=== PATIENT | female | born 1950 | race Asian ===

== ENCOUNTER 2017-09-03 12:57 | Emergency (ER) | payer OTHER ==
[~2017-09-03] VITALS: Ht 154.9 cm; Wt 64.9 kg
[2017-09-03 12:57] VITALS: TEMP 37.2; Ht 154.9 cm; Wt 64.9 kg
[2017-09-03 13:21] VITALS: O2SAT 94
--- NOTE | 2017-09-03 13:54 | EMERGENCY ROOM VISIT NOTE ---
History Report prepared by Malkaibkeron: Maribel Collins Under the Supervision of: Dr. Amaury Huff M.D. 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 Positive vomiting. Negative neck pain. She is accompanied by her son in law and daughter who report they were in a parking lot when the patient went around the front of the car but tripped over the barrier and fell face forward. She struck the side of her face on the ground and became syncopal for about 3 seconds. She came around after but had another episode of syncope that lasted for a few seconds. Her son in law reports that her eyes were rolling in the back of her head As per EMS, the patient vomited in the ambulance. The patient arrived from a 24 hour long plane ride from [facility] 6 days ago. Her family states that since landing, she has been nauseous and unable to sleep. She currently takes baby aspirin occasionally. 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 A total of ten systems were reviewed and were otherwise negative. Past Medical & Surgical Medical Problems: (1) No significant past medical history Family History No pertinent family history Social History Smoking Status: Never Smoker Smokeless Tobacco Use: No Drug Use: none Housing Status: lives with family Occupation Status: retired Current/Historical Medications Scheduled Calcium Carbonate-Vitamin D (Calcium), 1 TAB PO UD Glucosamine Sulfate (Glucosamine), 1 DOSE PO UD Scheduled PRN Aspirin (Aspirin Ec), 81 MG PO DAILY PRN for Pain Cetirizine (Zyrtec), 10 MG PO DAILY PRN for Seasonal Allergies Allergies Coded Allergies: No Known Allergies (Unverified , 09/03/17) Physical Exam Vital Signs Date Time Temp Pulse Resp B/P (MAP) Pulse Ox O2 Delivery O2 Flow Rate FiO2 09/03/17 14:53 89 16 151/72 95 Room Air 09/03/17 13:21 94 Room Air 09/03/17 13:10 83 09/03/17 12:57 37.2 88 20 146/78 94 Room Air Physical Exam GENERAL: Awake, alert, well-appearing, NAD. Left sided facial tenderness, swelling, trace bruising, and abrasion. HENT: Normocephalic, atraumatic. No malocclusion. EYES: Normal conjunctiva. Sclera non-icteric. PERRL. No anisocoria. NECK: Supple. No nuchal rigidity. FROM. No C spine TTP. RESPIRATORY: CTAB, no rhonchi, wheezing, crackles CARDIAC: RRR, no MRG ABDOMEN: Soft, NTND, BS+ MSK: No LE edema. Mild chest wall discomfort. No back, abdomen, pelvis, right upper or right lower pain. Mild pain of left forearm Good ROM. Small abrasion to left knee. No bruising, no swelling. NVI distally NEURO: GCS 15, CN 2-12 intact, moves all 4s on command SKIN: No rash or jaundice noted. Medical Decision & Procedures ER Provider Diagnostic Interpretation: Radiology results as stated below per my review and radiologist interpretation: CT SCAN OF THE FACIAL BONES WITHOUT IV CONTRAST CLINICAL HISTORY: Fall with left facial injury. COMPARISON STUDY: CT of the brain performed concurrently on 09/03/2017. TECHNIQUE: High-resolution CT scan of the facial bones is performed. Images are reviewed in the axial, sagittal, and coronal planes. IV contrast was not administered for this examination. A dose lowering technique was utilized adhering to the principles of ALARA. The examination is modestly degraded by motion artifact. FINDINGS: The skeletal structures are osteopenic. There is no evidence of facial bone fracture. The bony orbits are intact and the orbital contents are within normal limits. The zygomatic arches, nasal bones, and pterygoid plates are preserved. The maxilla and mandible are intact. There are no layering blood products within the paranasal sinuses. There is mild mucosal thickening within the maxillary antra, the left sphenoid sinus, ethmoid sinuses, and the left frontal sinus. There is a right mastoid effusion. A left mastoid air cells are clear. The visualized calvarium and upper cervical spine are maintained. Partially imaged brain parenchyma is within normal limits. Mineralization is noted in the basal ganglia. There is a left premalar soft tissue contusion. IMPRESSION: 1. There is no evidence of facial bone fracture. 2. Left premalar soft tissue contusion. Electronically signed by: Bala Vilbert, M.D. 09/03/2017 2:22 PM HEAD WITHOUT CONTRAST (CT) CLINICAL HISTORY: 67 years-old Female presenting with s/p fall, on ASA, L side of face. TECHNIQUE: Multidetector CT imaging of the head was performed without the use of intravenous contrast. IV contrast: None. A dose lowering technique was used consistent with the principles of ALARA (as low as reasonably achievable). COMPARISON: None. CT DOSE (mGy.cm): The estimated cumulative dose is 939.81 mGy.cm. FINDINGS: Service Now Developer topogram: Unremarkable. Ventricles and sulci normal in size. Brain parenchyma normal in appearance with preserved andersen-white differentiation. No mass effect or midline shift. No hemorrhage or acute territorial infarct. No extra-axial fluid collection. Paranasal sinuses and mastoid air cells clear. Calvarium intact. IMPRESSION: 1. No acute intracranial abnormality. Electronically signed by: Hector Trimble M.D. 09/03/2017 2:18 PM CHEST ONE VIEW PORTABLE HISTORY: s/p fall, on ASA, L side of face COMPARISON: None. FINDINGS: No pleural effusions. No pneumothorax. A few bibasilar linear densities suggesting subsegmental atelectasis or scarring. The heart is normal in size. No evidence for pulmonary edema. Questionable 1 cm nodule within the left upper lobe. IMPRESSION: 1. No acute process within the chest. 2. Questionable 1 cm nodule within the left upper lobe. Follow-up nonemergent chest CT is recommended for further evaluation. Electronically signed by: Tim Wilkerson M.D. 09/03/2017 2:[address] OF THE CERVICAL SPINE CLINICAL HISTORY: Neck pain status post trauma COMPARISON STUDY: No previous studies for comparison. CT DOSE: TECHNIQUE: CT scan of the cervical spine was performed from the skull base to the thoracic inlet. Images are reviewed in the axial, sagittal, and coronal planes. IV contrast was not administered for this examination. A dose lowering technique was utilized adhering to the principles of ALARA. FINDINGS: There is a multinodular thyroid goiter. There is no apical pneumothorax. There is a right mastoid effusion. There is a right jugular bulb dehiscence. There is sphenoid sinus mucosal thickening. The prevertebral soft tissues are normal. No fractures or subluxations are visualized. There are multilevel degenerative changes. There is mild multilevel spinal canal narrowing. There is slight reversal the normal cervical lordosis. IMPRESSION: 1. No evidence of acute fracture or traumatic subluxation 2. Moderate multilevel degenerative change 3. Incidentally noted right jugular bulb dehiscence 4. Multinodular thyroid gland 5. Right mastoid effusion Electronically signed by: Vipin Newberry M.D. 09/03/2017 2:21 PM ECG Per My Interpretation Indication: syncope Rate (beats per minute): 83 Rhythm: normal sinus Findings: T-wave inversion (Anterior, V1, V2, V3), other (normal axis, normal intervals) ED Course 1347: The patient was evaluated in room A9. A complete history and physical exam was performed. 1428: I reevaluated the patient. Discussed results and discharge instructions: The patient and her family verbalized understanding and agreement. The patient is ready for discharge. 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 Positive vomiting. Negative neck pain. Nursing notes reviewed. Ancillary studies and prior records reviewed. Differential diagnosis: Etiologies such as fracture, dislocation, intra-abdominal, pneumothorax, intrathoracic , intracranial, neurologic, as well as other traumatic pathologies were entertained. Patient was seen and evaluated the bedside. Patient is from [facility] and is visiting family. She suffered a mechanical fall earlier today presented to a restaurant. Patient did trip over a parking barrier and fell face forward. Patient did try to put her arms out but did strike the left side of her face. The patient does take a baby aspirin but no other blood thinning medications. The patient did have a brief questionable LOC thereafter as she was getting up. It sounds as though this is more positional as well as secondary to the shock of the fall. The patient did not have any chest pain palpitations shortness of breath prior. On exam she has some mild reproducible chest wall tenderness. Patient does have some swelling to the left side of her face. She has no visual acuity deficits and no focal neurologic deficits. Given that the patient had a fairly low mechanism of injury I do not believe that the patient requires blood work at this time. The patient did have CTs of the head neck and face completed along with a chest x-ray given the reproducible chest wall tenderness. Patient also did have an EKG completed. The patient CTs did not show any acute problem. The patient's chest x-ray did not show any rib fractures. There was a noted questional nodule. The family was made aware the nodule that they should receive follow-up. Patient's EKG did show TW I in the anterior leads. Believe less likely something like a cardiac contusion or pericardial effusion given the fairly normal contours and the fact that the patient does not have any active chest pain or shortness of breath only reproducible when palpated on the chest. This is most likely related to the fall. Given that the patient not on any blood thinners and relatively low mechanism I think bleeding into the chest or pericardium is less likely. Again the patient does not have any exertional symptoms. The patient has no diaphoresis or nausea or vomiting. The patient ambulated without exertional symptoms and ambulated without difficulty. Less likely ACS. I believe that her brief decreased alertness after the fall and standing up is likely positional as well as secondary to the shock of the fall and pain. EKG does not show any overt arrhythmia. The family was informed of all findings. Questions were answered. I did have the company secretary make a disc of her imaging as the patient is visiting from [facility]. They were again reminded to follow-up with regard to her questionable lung nodule. Family is agreeable to plan of care. Patient was given strict follow-up, discharge, and return precautions. All questions were answered. Patient was deemed suitable for outpatient follow-up at this time. Patient agreed with the plan of care and was safely discharged home. Medication Reconcilliation Current Medication List: was personally reviewed by me Blood Pressure Screening Patient's blood pressure: Elevated blood pressure Blood pressure disposition: Elevated BP felt to be situational Impression Primary Impression: Fall Additional Impression: Contusion of multiple sites Scribe Attestation The scribe's documentation has been prepared under my direction and personally reviewed by me in its entirety. I confirm that the note above accurately reflects all work, treatment, procedures, and medical decision making performed by me. Departure Information Dispostion Home / Self-Care Forms HOME CARE DOCUMENTATION FORM, IMPORTANT VISIT INFORMATION Patient Instructions ED Hematoma, ED Mechanical Fall, ED Prevention Fall, ED Wound Care, [facility] Additional Instructions Please return to the emergency department if you have worsening or recurrent symptoms not amenable to at-home treatment. Please call for a follow-up appointment with her primary care physician. Please take your medications as prescribed. If you have other concerns and/or complaints please feel free to also call your primary care physician's office or return the ED for further evaluation, management, and treatment. You may take tylenol 650 mg every 6 hours as needed for pain/fever unless told by your physician to not take it or have liver problems. Please apply ice. You may apply topical items like BenGay or icy hot. Take your medications as prescribed. As discussed you do have a lung nodule that would require a follow-up imaging study in the future to assess its size again. It is currently 1cm in the left upper lobe. You have been examined and treated today on an emergency basis only. This is not a substitute for, or an effort to provide, complete comprehensive medical care. It is impossible to recognize and treat all injuries or illnesses in a single emergency department visit. It is therefore important that you follow up closely with [facility], your PCP, and/or your specialist(s). Call as soon as possible for an appointment. Thank you for your time and consideration. I look forward to speaking with you again soon. Please don't hesitate to call us if you have any questions. Problem Qualifiers Primary Impression: Fall Encounter type: initial encounter Qualified Codes: W19.XXXA - Unspecified fall, initial encounter
--- NOTE | 2017-09-03 14:08 | DIAGNOSTIC IMAGING REPORT ---
CHEST ONE VIEW PORTABLE HISTORY: s/p fall, on ASA, L side of face COMPARISON: None. FINDINGS: No pleural effusions. No pneumothorax. A few bibasilar linear densities suggesting subsegmental atelectasis or scarring. The heart is normal in size. No evidence for pulmonary edema. Questionable 1 cm nodule within the left upper lobe. IMPRESSION: 1. No acute process within the chest. 2. Questionable 1 cm nodule within the left upper lobe. Follow-up nonemergent chest CT is recommended for further evaluation. Electronically signed by: Tim Wilkerson M.D. 09/03/2017 2:07 PM Dictated Date/Time: 09/03/2017 2:03 PM
--- NOTE | 2017-09-03 14:19 | DIAGNOSTIC IMAGING REPORT ---
HEAD WITHOUT CONTRAST (CT) CLINICAL HISTORY: 67 years-old Female presenting with s/p fall, on ASA, L side of face. TECHNIQUE: Multidetector CT imaging of the head was performed without the use of intravenous contrast. IV contrast: None. A dose lowering technique was used consistent with the principles of ALARA (as low as reasonably achievable). COMPARISON: None. CT DOSE (mGy.cm): The estimated cumulative dose is 939.81 mGy.cm. FINDINGS: General Production Laborer topogram: Unremarkable. Ventricles and sulci normal in size. Brain parenchyma normal in appearance with preserved andersen-white differentiation. No mass effect or midline shift. No hemorrhage or acute territorial infarct. No extra-axial fluid collection. Paranasal sinuses and mastoid air cells clear. Calvarium intact. IMPRESSION: 1. No acute intracranial abnormality. Electronically signed by: Hector Trimble M.D. 09/03/2017 2:18 PM Dictated Date/Time: 09/03/2017 2:15 PM
--- NOTE | 2017-09-03 14:22 | DIAGNOSTIC IMAGING REPORT ---
CT OF THE CERVICAL SPINE CLINICAL HISTORY: Neck pain status post trauma COMPARISON STUDY: No previous studies for comparison. CT DOSE: TECHNIQUE: CT scan of the cervical spine was performed from the skull base to the thoracic inlet. Images are reviewed in the axial, sagittal, and coronal planes. IV contrast was not administered for this examination. A dose lowering technique was utilized adhering to the principles of ALARA. FINDINGS: There is a multinodular thyroid goiter. There is no apical pneumothorax. There is a right mastoid effusion. There is a right jugular bulb dehiscence. There is sphenoid sinus mucosal thickening. The prevertebral soft tissues are normal. No fractures or subluxations are visualized. There are multilevel degenerative changes. There is mild multilevel spinal canal narrowing. There is slight reversal the normal cervical lordosis. IMPRESSION: 1. No evidence of acute fracture or traumatic subluxation 2. Moderate multilevel degenerative change 3. Incidentally noted right jugular bulb dehiscence 4. Multinodular thyroid gland 5. Right mastoid effusion Electronically signed by: Vipin Newberry M.D. 09/03/2017 2:21 PM Dictated Date/Time: 09/03/2017 2:17 PM
--- NOTE | 2017-09-03 14:23 | DIAGNOSTIC IMAGING REPORT ---
CT SCAN OF THE FACIAL BONES WITHOUT IV CONTRAST CLINICAL HISTORY: Fall with left facial injury. COMPARISON STUDY: CT of the brain performed concurrently on 09/03/2017. TECHNIQUE: High-resolution CT scan of the facial bones is performed. Images are reviewed in the axial, sagittal, and coronal planes. IV contrast was not administered for this examination. A dose lowering technique was utilized adhering to the principles of ALARA. The examination is modestly degraded by motion artifact. FINDINGS: The skeletal structures are osteopenic. There is no evidence of facial bone fracture. The bony orbits are intact and the orbital contents are within normal limits. The zygomatic arches, nasal bones, and pterygoid plates are preserved. The maxilla and mandible are intact. There are no layering blood products within the paranasal sinuses. There is mild mucosal thickening within the maxillary antra, the left sphenoid sinus, ethmoid sinuses, and the left frontal sinus. There is a right mastoid effusion. A left mastoid air cells are clear. The visualized calvarium and upper cervical spine are maintained. Partially imaged brain parenchyma is within normal limits. Mineralization is noted in the basal ganglia. There is a left premalar soft tissue contusion. IMPRESSION: 1. There is no evidence of facial bone fracture. 2. Left premalar soft tissue contusion. Electronically signed by: Bala Ragsdale M.D. 09/03/2017 2:22 PM Dictated Date/Time: 09/03/2017 2:17 PM
[2017-09-03 14:53] VITALS: BP 151/72; PULSE 89; O2SAT 95
[2017-09-03] MEDS ORDERED: GLUC500C4 PO (15:07)
[2017-09-03] MEDS ORDERED: CETI10TA84 PO (15:07)
[2017-09-03] MEDS ORDERED: ASPI81TA28 PO (15:07)
[2017-09-03] MEDS ORDERED: CALC-51 PO (15:07)
== END 2017-09-03 15:22 | disposition home or self-care (01) ==
LOC: C.EDA 12:59
DX: T14.8XXA Other injury of unspecified body region, initial encounter (principal); W19.XXXA Unspecified fall, initial encounter